=== PATIENT | female | born 1940 | race Caucasian/White ===

== ENCOUNTER → 2017-10-12 | Outpatient (CLI) | payer MEDICARE, BC ==
[~2017-10-12] MED LIST: AMARYL4 MG; FISH OIL1000 MG; JANUVIA50 MG; LIPITOR20 M1; LISINOPRIL/HCTZ1 TA3; MIRALAX(PO17 GM/1 PA; MULTIVITAMIN1 SGL; MYRBETRIQ50 MG; NEURONTIN600 M1; NORCO 325 MG-101 TAB; OMEPRAZOLE40 MG
[2017-10-12 10:36] LABS: BUN 42 mg/dL (7-18)
[2017-10-12 10:38] LABS: GFR (ESTIMATED) 27 ML/MIN (59-)
== END ==
LOC: LAB 07:13
PROVIDERS: Family Medicine
DX: E11.9 Type 2 diabetes mellitus without complications (principal); I10 Essential (primary) hypertension; E78.5 Hyperlipidemia, unspecified

== ENCOUNTER → 2017-10-21 | Outpatient (CLI) | payer MEDICARE, BC ==
[2017-10-21 13:31] LABS: BUN 25 mg/dL (7-18)
[2017-10-21 13:33] LABS: GFR (ESTIMATED) 34 ML/MIN (59-)
== END ==
LOC: LAB 12:59
PROVIDERS: Family Medicine
DX: N93.8 Other specified abnormal uterine and vaginal bleeding (principal)

== ENCOUNTER → 2017-10-25 | Outpatient (CLI) | payer MEDICARE, BC ==
--- NOTE | 2017-10-25 16:14 | RADIOLOGY REPORT PS360 ---
CT ABD PELVIS W/O CONTRAST CLINICAL INDICATION: GROSS MONIKAUTJEREMIE, DUB ORDERING PHYSICIAN: Isabela Guzmán MD PATIENT AGE: 76 years COMPARISON: 07/24/2014 TECHNIQUE: Axial images obtained with sagittal and coronal reformats. PROCEDURE: Oral Contrast: Redicat IV Contrast: None . FINDINGS: Lung bases show no acute finding. There are scattered small calcified nodules in the liver and spleen likely related to granulomas. Foci of increased density noted in the gravity dependent portion of gallbladder suspicious for cholelithiasis or sludge. Gallbladder ultrasound may be of further value. No focal liver lesion. Adrenal glands have an unremarkable appearance. There is pancreatic atrophy. Scattered small nodes are present in the portal region with some minimal calcification in a periportal lymph node as before. No renal mass, hydronephrosis, or obstructing ureteral calculus or renal calculus evident. No intestinal structure or free air. No evidence of appendicitis or diverticulitis. There is moderate diverticulosis of the descending and sigmoid colon. Artifact is present from interpedicular screws at L4 and L5. There are degenerative changes in the lumbar spine. No acute bony anomalies. IMPRESSION: 1. Diverticulosis of the descending and sigmoid colon. No evidence of diverticulitis. 2. Possible gallstones versus sludge. Gallbladder ultrasound may be of further value. 3. No acute finding
== END ==
LOC: RAD 08:51
DX: R31.0 Gross hematuria (principal); N93.8 Other specified abnormal uterine and vaginal bleeding